=== PATIENT | female | born 1950 ===

== ENCOUNTER 2017-12-25 18:14 | Observation (INO) | payer SELFPAY ==
[2017-12-25] MEDS ORDERED: Magnesium Citrate Oral SOL (300 ml) PO STA (18:48)
[2017-12-25] MEDS ORDERED: Magnesium Citrate Oral SOL (300 ml) ONE (19:34)
[2017-12-25 19:56] LABS: BASO % 0.5 % (0.0-2.0); EOS # 0.1 K/uL (0.0-0.7); HEMOGLOBIN 13.5 g/dL (12.0-16.0); LYMPH # 2.2 K/uL (1.0-4.3); LYMPH % 31.4 % (20.0-40.0); MEAN CELL VOLUME 94.7 fl (81.0-99.0); MEAN CORPUSCULAR HEMOGLOBIN 32.5 pg (27.0-31.0); MEAN CORPUSCULAR HGB CONC 34.3 g/dL (33.0-37.0); MEAN PLATELET VOLUME 8.1 fl (7.2-11.7); MONO # 0.7 K/uL (0.0-0.8); MONO % 10.8 % (0.0-10.0); NEUT # 3.8 K/uL (1.8-7.0); NEUT % 55.3 % (50.0-75.0); NRBC % 0.1 % (0.0-0.0); RBC 4.14 Mil/uL (3.80-5.20); RED CELL DISTRIBUTION WIDTH 12.7 % (11.5-14.5); WHITE BLOOD COUNT 6.9 K/uL (4.8-10.8)
[2017-12-25 20:00] LABS: ALB/GLOB RATIO 0.9 (1.0-2.1); CALCIUM 10.8 mg/dL (8.4-10.2)
[2017-12-25 20:12] LABS: SQUAMOUS EPITHIAL 1 /hpf (0-5); URINE BACTERIA RARE (<OCC); URINE BILIRUBIN NEGATIVE (NEGATIVE); URINE BLOOD MODERATE (NEGATIVE); URINE CLARITY CLOUDY (Clear); URINE COLOR YELLOW (YELLOW); URINE GLUCOSE (UA) NEG (Normal); URINE LEUKOCYTE ESTERASE LARGE Leu/uL (Negative); URINE PROTEIN 30 mg/dL (NEGATIVE); URINE UROBILINOGEN 0.2-1.0 mg/dL (0.2-1.0)
[2017-12-25] MEDS ORDERED: Iodixanol 320 MG/ML 100 ML BOTTLE IV ONE (21:07)
[2017-12-25] MEDS ORDERED: DiphenhydrAMINE 50 mg/ml Inj IV STA (21:30)
[2017-12-25] MEDS ORDERED: MethylPREDNISolone 40 mg Vial ONE (21:32)
[2017-12-25] MEDS ORDERED: DiphenhydrAMINE 50 mg/ml Inj ONE (21:32)
--- NOTE | 2017-12-25 22:39 | CT ---
EXAM: CT Abdomen and Pelvis With Intravenous Contrast EXAM DATE/TIME: 12/25/2017 8:02 PM CLINICAL HISTORY: 67 years old, female; Pain; Abdominal pain; Other: Diffuse; Patient HX: HX of kidney stones; Additional info: Diffuse abd pain obstipation TECHNIQUE: Axial computed tomography images of the abdomen and pelvis with intravenous contrast. All CT scans at this facility use one or more dose reduction techniques, viz.: automated exposure control; ma/kV adjustment per patient size (including targeted exams where dose is matched to indication; i.e. head); or iterative reconstruction technique. Coronal and sagittal reformatted images were created and reviewed. CONTRAST: 95 mL of [id number] administered intravenously. COMPARISON: CT - ABD PELVIS W/O PO OR IV CONT 2016-10-19 11:03 FINDINGS: Lower thorax: The heart is mildly enlarged. There is minimal atelectasis and scarring at the lung bases. ABDOMEN: Liver: There is fatty infiltration of the liver. Gallbladder and bile ducts: Gallbladder is partially distended. There are multiple small stones. Common duct is unremarkable. Pancreas: Pancreas is mildly atrophic. Spleen: unremarkable Adrenals: There is nodular thickening of the adrenals left greater than right. Kidneys and ureters: There continue to be multiple large nonobstructing right renal stones. There is a nonobstructing 14 x 13 x 15 mm stone in the right renal pelvis.There is no pelvocaliectasis.There is right renal scarring with focal parenchymal loss There are multiple left nonobstructing left renal stones. There is left renal scarring and parenchymal loss. There is been interval increase in pelvocaliectasis. There is an 8 x 9 x 12 mm partially obstructing stone at the left ureteropelvic junction. There are no ureteral stones. There is no ureterectasis. Stomach and bowel: Stomach is distended with an air-fluid level. Rotation is normal. Small bowel is distended with fluid and air. There is fluid and air throughout the small bowel. There is fecalization of the distal ileum. Appendix is unremarkable. Colon is incompletely distended which limits evaluation.there is mild descending colon wall thickening. There is more extensive sigmoid wall thickening. There is scattered diverticulosis. There is mild inflammation adjacent to the proximal sigmoid diverticulum, image 60 series 601 Appendix: See stomach and bowel PELVIS: Bladder: Bladder is almost empty. There is bladder wall thickening and enhancement. Reproductive: There no adnexal masses. Endometrium is mildly prominent given the patient's age. ABDOMEN and PELVIS: Intraperitoneal space: There is no free air. There is no free fluid. Bones/joints: There are degenerative changes in the osseus structures. There is disc disease greatest at L4-L5 and L5-S1. Soft tissues: There is a small fat containing umbilical hernia. Vasculature: There are vascular calcifications. Lymph nodes: There is shotty adenopathy. IMPRESSION: Multiple moderately large bilateral renal stones now with obstructing stone at the left ureteropelvic junction, no ureteral stones or ureterectasis; gallstones, no ductal dilatation; fatty liver; probable early sigmoid diverticulitis; mild bladder wall thickening and enhancement suggest cystitis Additional nonemergent findings as described above.
[2017-12-25] MEDS ORDERED: Potassium Chloride 20 mEq ER Tab PO ONE ×2 (23:21→23:33)
--- NOTE | 2017-12-25 23:33 | ED PDOC ---
HPI: Abdomen Time Seen by Provider: 12/25/17 18:35 Chief Complaint (Nursing): Abdominal Pain Chief Complaint (Provider): Abdominal Pain History Per: Patient History/Exam Limitations: no limitations Onset/Duration Of Symptoms: Days (x3) Outside of [place] travel?: No Current Symptoms Are (Timing): Still Present Location Of Pain/Discomfort: Diffuse Quality Of Discomfort: "Pain" Associated Symptoms: Nausea, Constipation. denies: Fever, Vomiting, Urinary Symptoms Additional Complaint(s): 67 year old female presents to ED with complaints of abdominal pain x3 days and has a past medical history of diabetes mellitus, HTN, thyroid disease, and kidney stones. Describes the pain as diffuse and intermittent. (+) constipation and nausea. (-) fever, urinary symptoms, vomiting, dizziness, or syncope. Admits to not taking any medication to relieve constipation. PCP: Jovanni Ricks Past Medical History Reviewed: Historical Data, Nursing Documentation, Vital Signs Vital Signs: Last Vital Signs Temp 98.1 F 12/25/17 18:31 Pulse 76 12/25/17 18:31 Resp 18 12/25/17 18:31 BP 146/74 12/25/17 18:31 Pulse Ox 99 12/25/17 23:41 - Medical History PMH: Diabetes (type II), HTN, Hypercholesterolemia, Hypothyroidism, Kidney Stones, Chronic Kidney Disease Denies: No Chronic Diseases - Surgical History Surgical History: Denies: No Surg Hx Other surgeries: kidney stone removeal several years ago - Family History Family History: States: Unknown Family Hx - Social History Current smoker - smoking cessation education provided: No Ex-Smoker (has not smoked in the last 12 months): No Alcohol: None Drugs: Denies - Home Medications Home Medications: Ambulatory Orders Medication Instructions Recorded Levothyroxine [Synthroid] 50 mcg PO DAILY #0 tab 09/18/16 - Allergies Allergies/Adverse Reactions: Allergies Allergy/AdvReac Type Severity Reaction Status Date / Time iodixanol [From Visipaque] AdvReac RASH Verified 12/25/17 22:13 Review of Systems ROS Statement: Except As Marked, All Systems Reviewed And Found Negative Constitutional: Negative for: Fever Gastrointestinal: Positive for: Nausea, Abdominal Pain, Constipation. Negative for: Vomiting Genitourinary Female: Negative for: Dysuria, Frequency, Incontinence, Hematuria Physical Exam - Reviewed Nursing Documentation Reviewed: Yes Vital Signs Reviewed: Yes - Physical Exam Appears: Positive for: Non-toxic, No Acute Distress Skin: Positive for: Normal Color, Warm, Dry Cardiovascular/Chest: Positive for: Regular Rate, Rhythm. Negative for: Murmur Respiratory: Positive for: Normal Breath Sounds. Negative for: Respiratory Distress Gastrointestinal/Abdominal: Positive for: Soft, Tenderness (mild diffuse abdominal tenderness). Negative for: Normal Exam Back: Positive for: L CVA Tenderness (left CVA tenderness greater than right CVA tenderness), R CVA Tenderness. Negative for: Normal Inspection Neurologic/Psych: Positive for: Alert, Oriented. Negative for: Motor/Sensory Deficits - Laboratory Results Result Diagrams: 12/25/17 19:29 12/25/17 19:29 - ECG O2 Sat by Pulse Oximetry: 99 (RA) Pulse Ox Interpretation: Normal Medical Decision Making Medical Decision Makin Initial plan: * Labs * Lipase * Magnesium Citrate 100mL PO * Phosphate Enema 135mL MD * UA * Re-eval 2001 Labs reviewed: normal white count, hypokalemia, hyperglycemia. Evidence present of large UTI * CTA A/P 2130 * Benadryl 50mg IV * Solumedrol 60mg IVP 2238 CT FINDINGS: Lower thorax: The heart is mildly enlarged. There is minimal atelectasis and scarring at the lung bases. ABDOMEN: Liver: There is fatty infiltration of the liver. Gallbladder and bile ducts: Gallbladder is partially distended. There are multiple small stones. Common duct is unremarkable. Pancreas: Pancreas is mildly atrophic. Spleen: unremarkable Adrenals: There is nodular thickening of the adrenals left greater than right. Kidneys and ureters: There continue to be multiple large nonobstructing right renal stones. There is a nonobstructing 14 x 13 x 15 mm stone in the right renal pelvis.There is no pelvocaliectasis.There is right renal scarring with focal parenchymal loss There are multiple left nonobstructing left renal stones. There is left renal scarring and parenchymal loss. There is been interval increase in pelvocaliectasis. There is an 8 x 9 x 12 mm partially obstructing stone at the left ureteropelvic junction. There are no ureteral stones. There is no ureterectasis. Stomach and bowel: Stomach is distended with an air-fluid level. Rotation is normal. Small bowel is distended with fluid and air. There is fluid and air throughout the small bowel. There is fecalization of the distal ileum. Appendix is unremarkable. Colon is incompletely distended which limits evaluation.there is mild descending colon wall thickening. There is more extensive sigmoid wall thickening. There is scattered diverticulosis. There is mild inflammation adjacent to the proximal sigmoid diverticulum, image 60 series 601 Appendix: See stomach and bowel PELVIS: Bladder: Bladder is almost empty. There is bladder wall thickening and enhancement. Reproductive: There no adnexal masses. Endometrium is mildly prominent given the patient's age. ABDOMEN and PELVIS: Intraperitoneal space: There is no free air. There is no free fluid. Bones/joints: There are degenerative changes in the osseus structures. There is disc disease greatest at L4-L5 and L5-S1. Soft tissues: There is a small fat containing umbilical hernia. Vasculature: There are vascular calcifications. Lymph nodes: There is shotty adenopathy. IMPRESSION: Multiple moderately large bilateral renal stones now with obstructing stone at the left ureteropelvic junction, no ureteral stones or ureterectasis; gallstones, no ductal dilatation; fatty liver; probable early sigmoid diverticulitis; mild bladder wall thickening and enhancement suggest cystitis Additional nonemergent findings as described above. After CT w IV contrast patient found to have acute rash/ itch w mild SOB. Lungs were clear, no resp distress and SPO2 96% Benadryl 50mg IV and solumedrol 60mg IV given, IV contrast added to allergy list by RN [id number] Given urine findings, patient will be admitted to [facility]. * EKG * Potassium chloride 20meq PO * Rocephin IV * UCx given hx DM, active UTI w nephrolithiasis, rocephin initiated and admit to [facility] service Scribe Attestation: Documented by Jolie Tracy acting as a scribe for Christopher Rosen DO. Scribe Attestation: All medical record entries made by the Scribe were at my direction and personally dictated by me. I have reviewed the chart and agree that the record accurately reflects my personal performance of the history, physical exam, medical decision making, and the department course for this patient. I have also personally directed, reviewed, and agree with the discharge instructions and disposition. Disposition - Clinical Impression Clinical Impression: UTI (urinary tract infection), Renal colic, Acute allergic reaction - Patient ED Disposition Is Patient to be Admitted: Yes Counseled Patient/Family Regarding: Studies Performed, Diagnosis - Disposition Disposition Time: 23:39 Condition: FAIR Forms: [facility] (Macedonian) - Pt Status Changed To: Hospital Disposition Of: Observation (OBS TELE)
[2017-12-25] MEDS ORDERED: cefTRIAXone (Rocephin) 1 gm Inj ONE (23:34)
--- NOTE | 2017-12-26 01:24 | CP.PCM.HP ---
History of Present Illness - History of Present Illness History of Present Illness: 67 year old female presents with 4 day history of lower abdominal pain, today began having nausea/vomiting prompting ED visit. She has history of nephrolithiasis, last had surgical intervention 15 years ago in [place]. She has bilateral lower abdominal pain, maybe worse in left side that is intermittent, nonradiating , moderate pain. Difficult to describe the pain. She has urinary frequency and hesitancy, no polyuria/polydipsia/polyphagia, no dysuria, hematuria, malodor of urine. She has not had any fevers, night sweats, or chills, no diarrhea or constipation. BMs are daily, soft. No change in bowel habits. Has hypercalcemia, on u/s: sestamibi scan suggestive of parathyroid adenoma, seen by surgery here at [facility], no surgical intervention recommended since hypercalcemia is mild. Last calcium: 10.8, mildly elevated. PMD: Dr. Ricks, last clinic visit 12/18/17 PMH: nephrolithiasis, parathyroid adenoma, hypothyroidism, hypercalcemia, NIDDM , Hyperlipidemia, obesity Past surgical hx: kidney stone removal/lithotripsy, BTL Social: Denies etoh.smoking. Illicit drugs Medications: Levothyroxine 50mcg, Metformin 100mg mg PO BID (increased 12/18/17) , Glyburide 5mg, Aspirin 81mg, Simvastatin 40mg Allergies: NKDA, as per ED today: reaction to contrast Family HX: unknown, denies family hx of nephrolithiasis in mother/father Present on Admission - Present on Admission Any Indicators Present on Admission: No Review of Systems - Constitutional Constitutional: absent: As Per HPI, Anorexia, Chills, Daytime Sleepiness, Excessive Sweating, Fatigue, Fever, Frequent Falls, Headache, Increased Appetite , Lethargy, Malaise, Night Sweats, Snoring, Sleep Apnea, Weight Gain, Weight Loss, Weakness, Other - EENT Eyes: absent: Change in Vision, Diplopia - Cardiovascular Cardiovascular: absent: Chest Pain, Chest Pain at Rest, Dyspnea, Pedal Edema, Syncope - Respiratory Respiratory: absent: Cough, Dyspnea - Gastrointestinal Gastrointestinal: Abdominal Pain (lower abdomen, bilateral), Nausea, Vomiting - Genitourinary Genitourinary: Difficulty Urinating, Urinary Frequency, Urinary Hesitance. absent: Dysuria, Hematuria Past Patient History - Infectious Disease Hx of Infectious Diseases: None - Past Medical History & Family History Past Medical History?: Yes - Past Social History Alcohol: None Drugs: Denies - CARDIAC Hx Hypercholesterolemia: Yes Hx Hypertension: Yes - PULMONARY Hx Respiratory Disorders: No - NEUROLOGICAL Hx Neurological Disorder: No - HEENT Hx HEENT Problems: No - RENAL Hx Chronic Kidney Disease: Yes Hx Kidney Stones: Yes - ENDOCRINE/METABOLIC Hx Hypothyroidism: Yes - HEMATOLOGICAL/ONCOLOGICAL Hx Blood Disorders: No - INTEGUMENTARY Hx Dermatological Problems: No - MUSCULOSKELETAL/RHEUMATOLOGICAL Hx Musculoskeletal Disorders: No - GASTROINTESTINAL Hx Gastrointestinal Disorders: No - GENITOURINARY/GYNECOLOGICAL Hx Genitourinary Disorders: No - PSYCHIATRIC Hx Psychophysiologic Disorder: No Hx Substance Use: No - SURGICAL HISTORY Hx Surgeries: Yes Other/Comment: Kidney stone - ANESTHESIA Hx Anesthesia: Yes Hx Anesthesia Reactions: No Hx Malignant Hyperthermia: No Meds Allergies/Adverse Reactions: Allergies Allergy/AdvReac Type Severity Reaction Status Date / Time iodixanol [From Visipaque] AdvReac RASH Verified 12/25/17 22:13 Physical Exam - Constitutional Appears: No Acute Distress, Older Than Stated Age - Head Exam Head Exam: ATRAUMATIC, NORMAL INSPECTION, NORMOCEPHALIC - Eye Exam Eye Exam: EOMI, PERRL - ENT Exam ENT Exam: Mucous Membranes Moist - Respiratory Exam Respiratory Exam: Clear to Auscultation Bilateral, NORMAL BREATHING PATTERN. absent: Decreased Breath Sounds, Rales, Rhonchi, Wheezes, Respiratory Distress - Cardiovascular Exam Cardiovascular Exam: REGULAR RHYTHM, +S1, +S2 - GI/Abdominal Exam GI & Abdominal Exam: Normal Bowel Sounds, Soft. absent: Distended, Guarding, Rebound, Tenderness - Extremities Exam Extremities exam: Negative for: pedal edema - Back Exam Back exam: NORMAL INSPECTION. absent: CVA tenderness (L), CVA tenderness (R) - Neurological Exam Neurological exam: Alert, CN II-XII Intact - Psychiatric Exam Psychiatric exam: Normal Affect, Normal Mood - Skin Skin Exam: Dry, Intact, Normal Color Results - Vital Signs Recent Vital Signs: Last Vital Signs Temp 98.8 F 12/26/17 00:11 Pulse 89 12/26/17 00:11 Resp 16 12/26/17 00:11 BP 150/91 H 12/26/17 00:11 Pulse Ox 100 12/26/17 00:11 - Labs Result Diagrams: 12/25/17 19:29 12/25/17 19:29 Labs: Laboratory Results - last 24 hr 12/25/17 12/25/17 12/25/17 19:29 19:29 19:48 WBC 6.9 RBC 4.14 Hgb 13.5 Hct 39.2 MCV 94.7 MCH 32.5 H MCHC 34.3 RDW 12.7 Plt Count 204 MPV 8.1 Neut % (Auto) 55.3 Lymph % (Auto) 31.4 [place] % (Auto) 10.8 H Eos % (Auto) 2.0 Baso % (Auto) 0.5 Neut # (Auto) 3.8 Lymph # (Auto) 2.2 [place] # (Auto) 0.7 Eos # (Auto) 0.1 Baso # (Auto) 0.0 Sodium 139 Potassium 2.9 L Chloride 95 L Carbon Dioxide 31 H Anion Gap 16 BUN 17 Creatinine 1.2 Est GFR ( Amer) 55 Est GFR (Non-Af Amer) 45 POC Glucose (mg/dL) Random Glucose 246 H Calcium 10.8 H Total Bilirubin 0.5 AST 44 H ALT 52 Alkaline Phosphatase 149 H Total Protein 8.2 Albumin 4.0 Globulin 4.2 H Albumin/Globulin Ratio 0.9 L Lipase 163 Urine Color Yellow Urine Clarity Cloudy Urine pH 6.0 Ur Specific [place] 1.009 Urine Protein 30 Urine Glucose (UA) Neg Urine Ketones Negative Urine Blood Moderate Urine Nitrate Negative Urine Bilirubin Negative Urine Urobilinogen 0.2-1.0 Ur Leukocyte Esterase Large Urine RBC (Auto) 22 H Urine Microscopic WBC 514 H Ur Squamous Epith Cells 1 Urine Bacteria Rare 12/26/17 00:24 WBC RBC Hgb Hct MCV MCH MCHC RDW Plt Count MPV Neut % (Auto) Lymph % (Auto) [place] % (Auto) Eos % (Auto) Baso % (Auto) Neut # (Auto) Lymph # (Auto) [place] # (Auto) Eos # (Auto) Baso # (Auto) Sodium Potassium Chloride Carbon Dioxide Anion Gap BUN Creatinine Est GFR ( Amer) Est GFR (Non-Af Amer) POC Glucose (mg/dL) 269 H Random Glucose Calcium Total Bilirubin AST ALT Alkaline Phosphatase Total Protein Albumin Globulin Albumin/Globulin Ratio Lipase Urine Color Urine Clarity Urine pH Ur Specific [place] Urine Protein Urine Glucose (UA) Urine Ketones Urine Blood Urine Nitrate Urine Bilirubin Urine Urobilinogen Ur Leukocyte Esterase Urine RBC (Auto) Urine Microscopic WBC Ur Squamous Epith Cells Urine Bacteria - Imaging and Cardiology CT scan - abdomen Status: Image reviewed by me, Report reviewed by me Additional comment: VRADS REPORT: FINDINGS: Lower thorax: The heart is mildly enlarged. There is minimal atelectasis and scarring at the lung bases. ABDOMEN: Liver: There is fatty infiltration of the liver. Gallbladder and bile ducts: Gallbladder is partially distended. There are multiple small stones. Common duct is unremarkable. Pancreas: Pancreas is mildly atrophic. Spleen: unremarkable Adrenals: There is nodular thickening of the adrenals left greater than right. Kidneys and ureters: There continue to be multiple large nonobstructing right renal stones. There is a nonobstructing 14 x 13 x 15 mm stone in the right renal pelvis.There is no pelvocaliectasis.There is right renal scarring with focal parenchymal loss There are multiple left nonobstructing left renal stones. There is left renal scarring and parenchymal loss. There is been interval increase in pelvocaliectasis. There is an 8 x 9 x 12 mm partially obstructing stone at the left ureteropelvic junction. There are no ureteral stones. There is no ureterectasis. Stomach and bowel: Stomach is distended with an air-fluid level. Rotation is normal. Small bowel is distended with fluid and air. There is fluid and air throughout the small bowel. There is fecalization of the distal ileum. Appendix is unremarkable. Colon is incompletely distended which limits evaluation.there is mild descending colon wall thickening. There is more extensive sigmoid wall thickening. There is scattered diverticulosis. There is mild inflammation adjacent to the proximal sigmoid diverticulum, image 60 series 601 Appendix: See stomach and bowel PELVIS: Bladder: Bladder is almost empty. There is bladder wall thickening and enhancement. Reproductive: There no adnexal masses. Endometrium is mildly prominent given the patient's age. ABDOMEN and PELVIS: Intraperitoneal space: There is no free air. There is no free fluid. Bones/joints: There are degenerative changes in the osseus structures. There is disc disease greatest at L4-L5 and L5-S1. Soft tissues: There is a small fat containing umbilical hernia. Vasculature: There are vascular calcifications. Lymph nodes: There is shotty adenopathy. IMPRESSION: Multiple moderately large bilateral renal stones now with obstructing stone at the left ureteropelvic junction, no ureteral stones or ureterectasis; gallstones, no ductal dilatation; fatty liver; probable early sigmoid diverticulitis; mild bladder wall thickening and enhancement suggest cystitis. Additional nonemergent findings as described above Assessment & Plan (1) Complicated urinary tract infection Assessment and Plan: 67 year old female presented with lower abdominal pain, urinary frequency/ hesitancy, admitted for hypokalemia and complicated UTI. Urinary symptoms in patient with DM and obstructing calculi -UA: + leukocyte esterase, +WBC: >500, urinary frequency/hesitancy -bladder wall thickening on CT -given 1 dose of rocephin in ED -will start zosyn Status: Acute (2) Hypokalemia Assessment and Plan: -Etiology of hypokalemia is unknown, will check magnesium/phosphorous. -Given PO Potassium in ED -Received dose of rocephin in ED, will continue -Will start IVF with LR given nephrolithiasis and hypokalemia Status: Acute (3) Nephrolithiasis Assessment and Plan: chronic, hx of removal w/ surgery/lithotripsy in the past in [place] -dose not have urologist here. -past CTs reviewed, appears that stone in UPJ was present on CT 10/2016 but was nonobstructing at that time; Multiple bilateral renal stones present- nonobstructing. -urology consult -Dr. Silva Status: Chronic (4) Non-insulin dependent type 2 diabetes mellitus Assessment and Plan: Uncontrolled- HGa1c: 7.8 from 12/24/17 -metformin 1000mg po bid, started 12/18/17, previously on Metformin 500mg po bid -glyburide 5mg Status: Chronic (5) HTN (hypertension) Assessment and Plan: controlled with irbesartan, given hx of nephrolithiasis, may benefit from thiazide. Status: Chronic (6) Hypothyroid Assessment and Plan: uncontrolled, as per ecw documentation she was off of levothyroxine while in [facility], symptomatic with fatigue/weight gain. -denied fatigue today -TSH: 5.89 -managed with levothyroxine 50mcg Status: Acute (7) DVT prophylaxis Assessment and Plan: scds Status: Acute
[2017-12-26] MEDS: Lactated Ringer's 1,000 ML IV SCH ×2 (01:45→21:15)
[2017-12-26] MEDS: Piperacillin/Tazobact 3.375 GM in Sodium Chloride 0.9% 100 ML IVPB SCH ×4 (03:54→22:33)
[2017-12-26] MEDS ORDERED: Piperacillin/Tazobact 3.375 GM in Sodium Chloride 0.9% 100 ML IVPB SCH (04:00)
[2017-12-26 05:49] LABS: HEMOGLOBIN 14.3 g/dL (12.0-16.0); MEAN CELL VOLUME 94.8 fl (81.0-99.0); MEAN CORPUSCULAR HEMOGLOBIN 32.4 pg (27.0-31.0); MEAN CORPUSCULAR HGB CONC 34.2 g/dL (33.0-37.0); RBC 4.39 Mil/uL (3.80-5.20); RED CELL DISTRIBUTION WIDTH 12.7 % (11.5-14.5); WHITE BLOOD COUNT 5.3 K/uL (4.8-10.8)
[2017-12-26 06:13] LABS: PROTHROMBIN TIME 11.1 Seconds (9.8-13.1)
[2017-12-26 06:39] LABS: CALCIUM 10.5 mg/dL (8.4-10.2)
[2017-12-26] MEDS: Levothyroxine 50 MCG TAB PO SCH (06:48)
--- NOTE | 2017-12-26 09:03 | CP.PCM.PN ---
Subjective - Date & Time of Evaluation Date of Evaluation: 12/26/17 Time of Evaluation: 07:30 - Subjective Subjective: Pt seen and evaluated at bedside this am, resting in bed. States she continues to have lower abdominal pain, urinary urgency and frequency, and burning with urination. Denies chest pain, shortness of breath, leg/calf pain. Receiving IV antibiotics. Objective - Vital Signs/Intake and Output Vital Signs (last 24 hours): Temp Pulse Resp BP Pulse Ox 98 F 88 18 122/72 97 12/26/17 07:57 12/26/17 07:57 12/26/17 07:57 12/26/17 07:57 12/26/17 07:57 - Medications Medications: Current Medications Lactated Ringer's (Lactated Ringer's) 1,000 mls @ 150 mls/hr IV .Q6H40M [facility] Last Admin: 12/26/17 01:45 Dose: 150 mls/hr Piperacillin Sod/Tazobactam (Sod 3.375 gm/ Sodium Chloride) 100 mls @ 100 mls/ hr IVPB Q6 [facility] PRN Reason: Protocol Last Admin: 12/26/17 03:54 Dose: 100 mls/hr Insulin Human Lispro (Humalog) 0 units SC ACHS [facility] PRN Reason: Protocol Ketorolac Tromethamine (Toradol) 30 mg IVP Q6 PRN PRN Reason: Pain, moderate (4-7) Levothyroxine Sodium (Synthroid) 50 mcg PO DAILY@0630 [facility] Last Admin: 12/26/17 06:48 Dose: 50 mcg Morphine Sulfate (Morphine) 2 mg IVP Q6 PRN PRN Reason: Pain, severe (8-10) - Labs Labs: 12/26/17 04:25 12/26/17 04:25 PT 11.1 Seconds (9.8-13.1) 12/26/17 04:25 INR 1.0 (0.9-1.2) 12/26/17 04:25 APTT 29.0 Seconds (25.6-37.1) 12/26/17 04:25 - Constitutional Appears: No Acute Distress - Eye Exam Eye Exam: Normal appearance - Respiratory Exam Respiratory Exam: Clear to Ausculation Bilateral, NORMAL BREATHING PATTERN - Cardiovascular Exam Cardiovascular Exam: REGULAR RHYTHM, +S1, +S2 - GI/Abdominal Exam GI & Abdominal Exam: Soft, Tenderness (bilateral lower quadrants, diffuse) - Extremities Exam Extremities Exam: absent: Calf Tenderness, Pedal Edema - Neurological Exam Neurological Exam: Alert - Skin Skin Exam: Dry, Normal Color, Warm Assessment and Plan - Assessment and Plan (Free Text) Assessment: 67 yo F with hx nephrolithiasis, parathyroid adenoma, hypothyroidism, NIDDM, hyperlipidemia, obesity with UTI symptoms and partially obstructing stone at left ureteropelvic junction. Plan: # Complicated UTI UA showed large leukocyte esterase, +WBC, pt has urinary frequency/urgency; bladder wall thickening suggestive of cystitis on CT. - Continue with IV zosyn Q6 - Follow up urine culture # Hypokalemia Presented with K of 2.9; 20m mEq given PO; repeat 3.0. - 40mEq IV today - Repeat BMP # Nephrolithiasis Pt has hx neprolithiasis. CT: multiple bilateral renal stones present that are nonobstructing; partially obstructing stone at left ureteropelvic junction -urology consult -Dr. Silva - IV hydration, LR @ 150ml/hr - flomax 0.4 mg daily # NIDDM Last HbA1c 7.8 from 12/24/17 - Metformin 1000 mg po bid, started 12/18/17 (recently changed from metformin 500mg PO BID) - Glyburide 5mg - Accuchecks - Hypoglycemia protocol and insulin coverage scale # Hypertension - Continue home meds - Monitor # Hypothyroidism TSH 5.89. Was not taking medications as prescribed due to recent travel to [place]. - Continue home medications, levothyroxine 50 mcg. # DVT prophylaxis - SCDs pending possible urological intervention
[2017-12-26] MEDS: Insulin Lispro (humaLOG) 100 Units/ml Inj SC SCH ×4 (10:03→22:06)
--- NOTE | 2017-12-26 10:57 | CARD ---
APPROVED REPORT EKG Measurement Heart [id number] <Conclusion> Normal sinus rhythm Moderate voltage criteria for LVH, may be normal variant Possible Inferior infarct, age undetermined Abnormal ECG
[2017-12-26] MEDS: Potassium Chloride 20 mEq 100 ML IVPB SCH ×2 (13:38→13:39)
--- NOTE | 2017-12-26 16:01 | CP.PCM.CON ---
History of Present Illness - History of Present Illness History of Present Illness: called to see pt for multiple bilateral renal calculi. She is aware that she has this urologic condition and has not to this point taken any proactive measures to address this condition. It appears from chart review that she uses the ER facilites for her routine medical care. In this manner it would be difficult to have any effective multi stage plan to deal w3ith her current urologic status. I reviewed her recent ct scan which shows large bilateral renal and ureteral calculi. She at this time has no acute hydronephrosis. Her pain currently is abdominal and not renal in nature. I encouraged her to contact a [facility] who might wish to take on her urologic care. If she continues to wait on this condition i warned her that in the long run she would suffer renal damage. Pt and family member understood and agree Past Patient History - Infectious Disease Hx of Infectious Diseases: None - Past Medical History & Family History Past Medical History?: Yes - Past Social History Alcohol: None Drugs: Denies - CARDIAC Hx Hypercholesterolemia: Yes Hx Hypertension: Yes - PULMONARY Hx Respiratory Disorders: No - NEUROLOGICAL Hx Neurological Disorder: No - HEENT Hx HEENT Problems: No - RENAL Hx Chronic Kidney Disease: Yes Hx Kidney Stones: Yes - ENDOCRINE/METABOLIC Hx Hypothyroidism: Yes - HEMATOLOGICAL/ONCOLOGICAL Hx Blood Disorders: No - INTEGUMENTARY Hx Dermatological Problems: No - MUSCULOSKELETAL/RHEUMATOLOGICAL Hx Musculoskeletal Disorders: No - GASTROINTESTINAL Hx Gastrointestinal Disorders: No - GENITOURINARY/GYNECOLOGICAL Hx Genitourinary Disorders: No - PSYCHIATRIC Hx Psychophysiologic Disorder: No Hx Substance Use: No - SURGICAL HISTORY Hx Surgeries: Yes Other/Comment: Kidney stone - ANESTHESIA Hx Anesthesia: Yes Hx Anesthesia Reactions: No Hx Malignant Hyperthermia: No Meds Allergies/Adverse Reactions: Allergies Allergy/AdvReac Type Severity Reaction Status Date / Time iodixanol [From Visipaque] AdvReac RASH Verified 12/25/17 22:13 - Medications Medications: Current Medications Glyburide (Micronase) 5 mg PO BRK [facility] Lactated Ringer's (Lactated Ringer's) 1,000 mls @ 150 mls/hr IV .Q6H40M [facility] Last Admin: 12/26/17 01:45 Dose: 150 mls/hr Piperacillin Sod/Tazobactam (Sod 3.375 gm/ Sodium Chloride) 100 mls @ 100 mls/ hr IVPB Q6 [facility] PRN Reason: Protocol Last Admin: 12/26/17 10:04 Dose: 100 mls/hr Insulin Human Lispro (Humalog) 0 units SC ACHS [facility] PRN Reason: Protocol Last Admin: 12/26/17 13:40 Dose: 4 unit Ketorolac Tromethamine (Toradol) 30 mg IVP Q6 PRN PRN Reason: Pain, moderate (4-7) Levothyroxine Sodium (Synthroid) 50 mcg PO DAILY@0630 [facility] Last Admin: 12/26/17 06:48 Dose: 50 mcg Metformin HCl (Glucophage) 1,000 mg PO BIDWM [facility] Morphine Sulfate (Morphine) 2 mg IVP Q6 PRN PRN Reason: Pain, severe (8-10) Tamsulosin HCl (Flomax) 0.4 mg PO DAILY [facility] Last Admin: 12/26/17 13:39 Dose: 0.4 mg Results - Vital Signs Recent Vital Signs: Last Vital Signs Temp 97.7 F 12/26/17 12:35 Pulse 88 12/26/17 12:35 Resp 18 12/26/17 12:35 BP 132/78 12/26/17 12:35 Pulse Ox 97 12/26/17 12:35 - Labs Result Diagrams: 12/26/17 04:25 12/26/17 04:25 Labs: Laboratory Results - last 24 hr 12/25/17 12/25/17 12/25/17 18:18 19:29 19:29 WBC 6.9 RBC 4.14 Hgb 13.5 Hct 39.2 MCV 94.7 MCH 32.5 H MCHC 34.3 RDW 12.7 Plt Count 204 MPV 8.1 Neut % (Auto) 55.3 Lymph % (Auto) 31.4 [place] % (Auto) 10.8 H Eos % (Auto) 2.0 Baso % (Auto) 0.5 Neut # (Auto) 3.8 Lymph # (Auto) 2.2 [place] # (Auto) 0.7 Eos # (Auto) 0.1 Baso # (Auto) 0.0 PT INR APTT Sodium 139 Potassium 2.9 L Chloride 95 L Carbon Dioxide 31 H Anion Gap 16 BUN 17 Creatinine 1.2 Est GFR ( Amer) 55 Est GFR (Non-Af Amer) 45 POC Glucose (mg/dL) Random Glucose 246 H Calcium 10.8 H Phosphorus Magnesium 1.8 Total Bilirubin 0.5 AST 44 H ALT 52 Alkaline Phosphatase 149 H Total Protein 8.2 Albumin 4.0 Globulin 4.2 H Albumin/Globulin Ratio 0.9 L Lipase 163 Urine Color Urine Clarity Urine pH Ur Specific [place] Urine Protein Urine Glucose (UA) Urine Ketones Urine Blood Urine Nitrate Urine Bilirubin Urine Urobilinogen Ur Leukocyte Esterase Urine RBC (Auto) Urine Microscopic WBC Ur Squamous Epith Cells Urine Bacteria 12/25/17 12/26/17 12/26/17 19:48 00:24 04:25 WBC 5.3 RBC 4.39 Hgb 14.3 Hct 41.6 MCV 94.8 MCH 32.4 H MCHC 34.2 RDW 12.7 Plt Count 214 MPV Neut % (Auto) Lymph % (Auto) [place] % (Auto) Eos % (Auto) Baso % (Auto) Neut # (Auto) Lymph # (Auto) [place] # (Auto) Eos # (Auto) Baso # (Auto) PT INR APTT Sodium Potassium Chloride Carbon Dioxide Anion Gap BUN Creatinine Est GFR ( Amer) Est GFR (Non-Af Amer) POC Glucose (mg/dL) 269 H Random Glucose Calcium Phosphorus Magnesium Total Bilirubin AST ALT Alkaline Phosphatase Total Protein Albumin Globulin Albumin/Globulin Ratio Lipase Urine Color Yellow Urine Clarity Cloudy Urine pH 6.0 Ur Specific [place] 1.009 Urine Protein 30 Urine Glucose (UA) Neg Urine Ketones Negative Urine Blood Moderate Urine Nitrate Negative Urine Bilirubin Negative Urine Urobilinogen 0.2-1.0 Ur Leukocyte Esterase Large Urine RBC (Auto) 22 H Urine Microscopic WBC 514 H Ur Squamous Epith Cells 1 Urine Bacteria Rare 12/26/17 12/26/17 12/26/17 04:25 04:25 04:32 WBC RBC Hgb Hct MCV MCH MCHC RDW Plt Count MPV Neut % (Auto) Lymph % (Auto) [place] % (Auto) Eos % (Auto) Baso % (Auto) Neut # (Auto) Lymph # (Auto) [place] # (Auto) Eos # (Auto) Baso # (Auto) PT 11.1 INR 1.0 APTT 29.0 Sodium 140 Potassium 3.0 L Chloride 97 L Carbon Dioxide 30 Anion Gap 16 BUN 16 Creatinine 1.2 Est GFR ( Amer) 55 Est GFR (Non-Af Amer) 45 POC Glucose (mg/dL) 305 H Random Glucose 357 H Calcium 10.5 H Phosphorus 1.0 L* Magnesium 2.6 H Total Bilirubin AST ALT Alkaline Phosphatase Total Protein Albumin Globulin Albumin/Globulin Ratio Lipase Urine Color Urine Clarity Urine pH Ur Specific [place] Urine Protein Urine Glucose (UA) Urine Ketones Urine Blood Urine Nitrate Urine Bilirubin Urine Urobilinogen Ur Leukocyte Esterase Urine RBC (Auto) Urine Microscopic WBC Ur Squamous Epith Cells Urine Bacteria 12/26/17 11:12 WBC RBC Hgb Hct MCV MCH MCHC RDW Plt Count MPV Neut % (Auto) Lymph % (Auto) [place] % (Auto) Eos % (Auto) Baso % (Auto) Neut # (Auto) Lymph # (Auto) [place] # (Auto) Eos # (Auto) Baso # (Auto) PT INR APTT Sodium Potassium Chloride Carbon Dioxide Anion Gap BUN Creatinine Est GFR ( Amer) Est GFR (Non-Af Amer) POC Glucose (mg/dL) 250 H Random Glucose Calcium Phosphorus Magnesium Total Bilirubin AST ALT Alkaline Phosphatase Total Protein Albumin Globulin Albumin/Globulin Ratio Lipase Urine Color Urine Clarity Urine pH Ur Specific [place] Urine Protein Urine Glucose (UA) Urine Ketones Urine Blood Urine Nitrate Urine Bilirubin Urine Urobilinogen Ur Leukocyte Esterase Urine RBC (Auto) Urine Microscopic WBC Ur Squamous Epith Cells Urine Bacteria
[2017-12-26 19:07] LABS: CALCIUM 10.1 mg/dL (8.4-10.2)
[2017-12-26] MEDS ORDERED: Enoxaparin 40 mg Syringe SC SCH (22:00)
[2017-12-27] MEDS: Lactated Ringer's 1,000 ML IV SCH ×2 (03:55→09:38)
[2017-12-27] MEDS: Piperacillin/Tazobact 3.375 GM in Sodium Chloride 0.9% 100 ML IVPB SCH ×2 (04:44→09:05)
[2017-12-27] MEDS: Levothyroxine 50 MCG TAB PO SCH (05:58)
--- NOTE | 2017-12-27 06:29 | CP.PCM.DIS ---
Provider - Provider Date of Admission: 12/25/17 23:29 Attending physician: Teresa Pichardo MD Primary care physician: Dr. Ricks, [facility] Consults: Urology- Dr. Silva Time Spent in preparation of Discharge (in minutes): 35 Diagnosis - Discharge Diagnosis (1) UTI (urinary tract infection) Status: Acute Comment: Pt presented with symptoms of urinary tract infection; was started on emperic antibiotics; will be continued on PO basis at home. (2) Nephrolithiasis Status: Chronic Comment: Pt has longstanding history of nephrolithiasis. Urology was consulted, and pt was seen by urologist Dr. Silva, who started that due to there being no obstruction, there is no indication for surgical intervention. Dr. Silva spoke directly to patient and family member who was at bedside regarding chronicity of patient's condition and the need to establish care with a urologist. Hospital Course - Lab Results Lab Results: Most Recent Lab Values WBC 5.3 K/uL (4.8-10.8) 12/26/17 04:25 RBC 4.39 Mil/uL (3.80-5.20) 12/26/17 04:25 Hgb 14.3 g/dL (12.0-16.0) 12/26/17 04:25 Hct 41.6 % (34.0-47.0) 12/26/17 04:25 MCV 94.8 fl (81.0-99.0) 12/26/17 04:25 MCH 32.4 pg (27.0-31.0) H 12/26/17 04:25 MCHC 34.2 g/dL (33.0-37.0) 12/26/17 04:25 RDW 12.7 % (11.5-14.5) 12/26/17 04:25 Plt Count 214 K/uL (130-400) 12/26/17 04:25 MPV 8.1 fl (7.2-11.7) 12/25/17 19:29 Neut % (Auto) 55.3 % (50.0-75.0) 12/25/17 19:29 Lymph % (Auto) 31.4 % (20.0-40.0) 12/25/17 19:29 [place] % (Auto) 10.8 % (0.0-10.0) H 12/25/17 19:29 Eos % (Auto) 2.0 % (0.0-4.0) 12/25/17 19: Baso % (Auto) 0.5 % (0.0-2.0) 12/25/17 19:29 Neut # (Auto) 3.8 K/uL (1.8-7.0) 12/25/17 19: Lymph # (Auto) 2.2 K/uL (1.0-4.3) 12/25/17 19: [place] # (Auto) 0.7 K/uL (0.0-0.8) 12/25/17 19: Eos # (Auto) 0.1 K/uL (0.0-0.7) 12/25/17 19: Baso # (Auto) 0.0 K/uL (0.0-0.2) 12/25/17 19: PT 11.1 Seconds (9.8-13.1) 12/26/17 04:25 INR 1.0 (0.9-1.2) 12/26/17 04:25 APTT 29.0 Seconds (25.6-37.1) 12/26/17 04:25 Sodium 142 mmol/l (132-148) 12/26/17 17:37 Potassium 3.6 MMOL/L (3.6-5.0) 12/26/17 17:37 Chloride 100 mmol/L (98-107) 12/26/17 17:37 Carbon Dioxide 31 mmol/L (22-30) H 12/26/17 17:37 Anion Gap 15 (10-20) 12/26/17 17:37 BUN 23 mg/dl (7-17) H 12/26/17 17:37 Creatinine 1.4 mg/dl (0.7-1.2) H 12/26/17 17:37 Est GFR ( Amer) 46 12/26/17 17:37 Est GFR (Non-Af Amer) 38 12/26/17 17:37 POC Glucose (mg/dL) 255 mg/dL (65-110) H 12/26/17 16:06 Random Glucose 188 mg/dL (65-105) H 12/26/17 17:37 Calcium 10.1 mg/dL (8.4-10.2) 12/26/17 17:37 Phosphorus 1.0 mg/dl (2.5-4.5) L* 12/26/17 04:25 Magnesium 2.6 MG/DL (1.6-2.3) H 12/26/17 04:25 Total Bilirubin 0.5 mg/dl (0.2-1.3) 12/25/17 19:29 AST 44 U/L (14-36) H 12/25/17 19:29 ALT 52 U/L (9-52) 12/25/17 19:29 Alkaline Phosphatase 149 U/L (38-126) H 12/25/17 19:29 Total Protein 8.2 G/DL (6.3-8.2) 12/25/17 19:29 Albumin 4.0 g/dL (3.5-5.0) 12/25/17 19:29 Globulin 4.2 gm/dL (2.2-3.9) H 12/25/17 19:29 Albumin/Globulin Ratio 0.9 (1.0-2.1) L 12/25/17 19:29 Lipase 163 U/L (23-300) 12/25/17 19:29 Urine Color Yellow (YELLOW) 12/25/17 19:48 Urine Clarity Cloudy (Clear) 12/25/17 19:48 Urine pH 6.0 (5.0-8.0) 12/25/17 19:48 Ur Specific [place] 1.009 (1.003-1.030) 12/25/17 19:48 Urine Protein 30 mg/dL (NEGATIVE) 12/25/17 19:48 Urine Glucose (UA) Neg mg/dL (Normal) 12/25/17 19:48 Urine Ketones Negative mg/dL (NEGATIVE) 12/25/17 19:48 Urine Blood Moderate (NEGATIVE) 12/25/17 19:48 Urine Nitrate Negative (NEGATIVE) 12/25/17 19:48 Urine Bilirubin Negative (NEGATIVE) 12/25/17 19:48 Urine Urobilinogen 0.2-1.0 mg/dL (0.2-1.0) 12/25/17 19:48 Ur Leukocyte Esterase Large [place]/uL (Negative) 12/25/17 19:48 Urine RBC (Auto) 22 /hpf (0-3) H 12/25/17 19:48 Urine Microscopic WBC 514 /hpf (0-5) H 12/25/17 19:48 Ur Squamous Epith Cells 1 /hpf (0-5) 12/25/17 19:48 Urine Bacteria Rare (<OCC) 12/25/17 19:48 - Hospital Course Hospital Course: Pt presented with symptoms of UTI including frequency, urgency, hesitancy and burning. UA showed large leukocyte esterase, and she was started on empiric antibiotics, which will be continued PO upon discharge. CT scan showed multiple nonobstructing nephrolithitic stones. Urology was consulted, and pt was seen by urologist Dr. Silva, who stated that due to there being no obstruction, there is no indication for surgical intervention. Dr. Silva spoke directly to patient and family member who was at bedside regarding chronicity of patient's condition and the need to establish care with a urologist. Patient has been given referral to [facility] from her clinic visits, and is in the process of obtaining care with urology there. Pt will be sent home with 1 month prescription of Flomax 0.4mg, and prescription for Ciprofloxacin 250 mg Q12 for 14 days. This dose was chosen instead of 500mg Q12 for 7-14 days because patient's creatinine clearance is 43 when adjusted for her body weight, and consideration was given to her kidney function. Patient's other home medications were not adjusted during this hospital stay. Discharge Exam - Head Exam Head Exam: ATRAUMATIC, NORMAL INSPECTION, NORMOCEPHALIC - Eye Exam Eye Exam: Normal appearance - ENT Exam ENT Exam: Mucous Membranes Moist - Neck Exam Neck exam: Full Rom - Respiratory Exam Respiratory Exam: Clear to PA & Lateral, NORMAL BREATHING PATTERN, UNREMARKABLE. absent: Respiratory Distress - Cardiovascular Exam Cardiovascular Exam: REGULAR RHYTHM, +S1, +S2 - GI/Abdominal Exam GI & Abdominal Exam: Normal Bowel Sounds, Soft. absent: Tenderness - Extremities Exam Extremities exam: normal inspection Additional comments: no calf tenderness - Back Exam Back exam: NORMAL INSPECTION - Neurological Exam Neurological exam: Alert, Normal Gait - Skin Skin Exam: Dry, Normal Color, Warm Discharge Plan - Discharge Medications Prescriptions: Ciprofloxacin [Cipro] 250 mg PO BID #28 tab Tamsulosin [Flomax] 0.4 mg PO DAILY #30 cap - Follow Up Plan Condition: FAIR Disposition: HOME/ ROUTINE Instructions: Urinary Tract Infection in Women (DC), Urinary Tract Infection in Men (DC), Dysuria (GEN) Additional Instructions: Please follow up at scheduled appointment with Dr. Ricks. Please take antibiotics as prescribed for urinary tract infection; prescription sent to your pharmacy. Please take Flomax to help with urination; prescription sent to your pharmacy. Please get bloodwork done prior to next appointment. Please continue with the plan that you have in motion to obtain care at [facility]. Return to ED if you experience fevers, chills, vomiting, worsening/unrelenting symptoms. Referrals: [facility] [Provider [facility]] - 01/14/18 1:20 pm (Please follow up at scheduled appointment with Dr. Ricks at [facility].)
[2017-12-27] MEDS: Insulin Lispro (humaLOG) 100 Units/ml Inj SC SCH ×2 (06:33→12:28)
[2017-12-27 08:17] VITALS: RESP 20
[2017-12-27 12:23] VITALS: BP 124/78; PULSE 69; TEMP 98; O2SAT 98
== END 2017-12-27 14:36 | disposition home or self-care (01) ==
LOC: H.ER 18:14 → H.ERHOLD 23:29 → H.TEL 12-26 01:35
PROVIDERS: ADMIT Family Medicine Geriatric Medicine; ATTEND Family Medicine Geriatric Medicine
DX: N39.0 Urinary tract infection, site not specified (principal); E03.9 Hypothyroidism, unspecified; E83.52 Hypercalcemia; E11.65 Type 2 diabetes mellitus with hyperglycemia; I12.9 Hypertensive chronic kidney disease with stage 1 through stage 4 chronic kidney disease, or unspecified chronic kidney disease; N18.9 Chronic kidney disease, unspecified; E87.6 Hypokalemia; E78.00 Pure hypercholesterolemia, unspecified; K59.00 Constipation, unspecified; E78.5 Hyperlipidemia, unspecified; E66.9 Obesity, unspecified; Z68.32 Body mass index [BMI] 32.0-32.9, adult; N20.2 Calculus of kidney with calculus of ureter; Z87.442 Personal history of urinary calculi; E11.22 Type 2 diabetes mellitus with diabetic chronic kidney disease
CPT/HCPCS: 36415; 74177; 80048; 80053; 81003; 82948; 83690; 83735; 84100; 85025; 85027; 85610; 85730; 87086; 93005; 96374; 99283; G0378; J0696; J1200; J1650; J1885; J2543; J2930; J3480; J7120; Q9967